=== PATIENT | male | born 1965 | race African-American/Black ===

== ENCOUNTER 2020-12-08 11:25 | Emergency (ER) | payer BC, OTHER ==
[2020-12-08 11:42] VITALS: BP 164/98; PULSE 95; TEMP 98.9; BMI 27.8
[2020-12-08] MEDS ORDERED: LIDOCAINE 5% TOPICAL PATCH TP ONE (13:00)
[2020-12-08] MEDS ORDERED: LIDOCAINE 5% TOPICAL PATCH ONE (13:25)
== END 2020-12-08 13:41 | disposition home or self-care (01) ==
LOC: JERFT 11:25
DX: B02.9 Zoster without complications (principal)
CPT/HCPCS: 99284-25

== ENCOUNTER 2022-12-30 13:07 | Emergency (ER) | payer BC, OTHER ==
[2022-12-30 13:22] VITALS: BP 181/118; PULSE 85; TEMP 98.4; BMI 41.1
[2022-12-30] MEDS ORDERED: TETRACAINE 0.5% OPHTH SOLN 2 ML BOTTLE ONE (14:18)
[2022-12-30] MEDS ORDERED: FLUORESCEIN NA 1 EA STRIP ONE (14:18)
[2022-12-30] MEDS ORDERED: FLUORESCEIN NA 1 EA STRIP OS ONE (14:28)
[2022-12-30] MEDS ORDERED: TETRACAINE 0.5% OPHTH SOLN 2 ML BOTTLE OS ONE (14:28)
[2022-12-30] MEDS ORDERED: DIPHTH,PERTUSS(ACELL),TET 0.5 ML DISP.SYRIN IM ONE ×2 (14:28→14:30)
== END 2022-12-30 14:33 | disposition home or self-care (01) ==
LOC: JERFT 13:07 → JER 13:07 → JERFT 14:33
PROC: 3E0234Z Introduction of Serum, Toxoid and Vaccine into Muscle, Percutaneous Approach (ICD-10-PCS; principal; 2022-12-30)
DX: S05.02XA Injury of conjunctiva and corneal abrasion without foreign body, left eye, initial encounter (principal); H00.024 Hordeolum internum left upper eyelid; W45.8XXA Other foreign body or object entering through skin, initial encounter
CPT/HCPCS: 90715; 99283-25